=== PATIENT | female | born 1940 | race Caucasian/White ===

== ENCOUNTER 2016-06-15 14:52 | Emergency (ER) | payer MEDICARE, OTHER ==
[2016-06-15 15:55] VITALS: TEMP 97.9
--- NOTE | 2016-06-15 16:33 | EDPHY ---
H & P Time Seen by Provider: 06/15/16 16:33 HPI/ROS: CHIEF COMPLAINT: Left leg swelling HISTORY OF PRESENT ILLNESS: 75-year-old woman fell day on her left knee and then today noticed it was much more swollen and painful on the calf and down to the ankle. Symptoms worse with movement palpation but not associated with chest pain or shortness of breath or fever. Symptoms really started over the last 24 hours. No radiation. REVIEW OF SYSTEMS: Eye: no change in vision ENT: no sore throat Cardiac: no chest pain or syncope Pulmonary: no cough or SOB Abdomen: no vomiting, diarrhea, abdominal pain Musculoskeletal: As in HPI Skin: no rash Neuro: no headache Constitutional: no fever : no urinary symptoms A comprehensive 10 point review of systems is otherwise negative aside from elements mentioned in the history of present illness. PAST MEDICAL HISTORY: Negative Social history: Former smoker. General Appearance: Alert and conversant, cooperative. Eyes: No scleral icterus. ENT, Mouth: Normal mucous membranes. Respiratory: Normal respiratory effort, breath sounds equal, lungs are clear to auscultation. Cardiovascular: Regular rate and rhythm. Gastrointestinal: Abdomen is soft and non tender. Neurological: Alert and oriented x3. Normally conversant. Face symmetric, normal movement and sensation in all extremities. Skin: Abrasion to left kneecap but no redness or lymphangitis, no crepitus, no fluctuance. Musculoskeletal: Left calf is swollen and mildly tender but compartments are soft. Normal motor and sensory in the foot. Normal dorsalis pedis pulse in the left foot. Normal range of motion of the left knee but some pain with range of motion and tender to palpation over the patella. Psychiatric: Not agitated. Emergency Department course/MDM: I think arterial occlusion , or cellulitis are unlikely. I do not think the patient likely has compartment syndrome. Plan for x-ray of the left knee and ultrasound of her left lower extremity. Ultrasound shows Lua cyst but no DVT per [place] at 5:31 p.m.. Results discussed with the patient including showing her the x-ray of her patella. Knee immobilizer placed. Orthopedic follow-up mandatory this week. Smoking Status: Never smoked Constitutional: Initial Vital Signs Temperature (C) 36.6 C 06/15/16 15:53 Heart Rate 74 06/15/16 15:53 Respiratory Rate 14 06/15/16 15:53 Blood Pressure 208/104 H 06/15/16 15:53 O2 Sat (%) 96 06/15/16 15:53 O2 Delivery Mode Room Air Allergies/Adverse Reactions: No Known Allergies Allergy (Unverified 06/15/16 15:53) Home Medications: Medication Instructions Recorded NK [No Known Home Meds] 06/15/16 Medical Decision Making - Diagnostics Imaging: X-ray of the left knee viewed independently by myself shows longitudinal nondisplaced patellar fracture. Differential Diagnosis: Differential considered including but not limited to patella fracture, tibial plateau fracture, compartment syndrome, DVT, Lua cyst, arterial occlusion, cellulitis. Departure - Departure Disposition: Home, Routine, Self-Care Clinical Impression: Left patella fracture Condition: Good Instructions: Patellar Fracture (ED) Additional Instructions: Ultrasound shows no evidence of DVT or blood clot. Referrals: Amanda Sargent MD [Primary Care Provider] - As per Instructions Arturo Bland MD [Medical Doctor] - As per Instructions (followup this week with ortho wear knee brace at all times when not in shower)
--- NOTE | 2016-06-15 17:02 | DX ---
Left knee 5 views History: Pain and swelling after fall 2 days ago. Comparison: None available. Findings: There is a mildly comminuted nondisplaced patellar fracture. Alignment is normal. Bone mine ralization is normal. Mild medial joint space narrowing is present with small osteophytes. Chondrocal cinosis is noted. Atherosclerosis is present. Extensive anterior soft tissue swelling is noted. Impression: Comminuted nondisplaced patellar fracture.
--- NOTE | 2016-06-15 17:32 | US ---
Left Lower Extremity Ultrasound and Venous Duplex Doppler Study History: Swelling after fall. Comparison: None available. Technique: High frequency transducer was used for imaging and Doppler study of the veins of the lowe r extremity. Pulsed Doppler and color Doppler were utilized, along with various maneuvers to assess flow in the veins. Findings: The deep veins of the lower extremity are normally compressible between the groin and the upper calf and have normal Doppler waveforms within them. No venous thrombosis is identified. There is a 4.2 x 0.2 x 0.7 cm fluid collection in the popliteal fossa. Impression: 1. No evidence of deep vein thrombosis. 2. Small Lua's cyst. Findings discussed with Jeannie Ward today at 1730 hours.
[2016-06-15 18:07] VITALS: BP 171/108; PULSE 84; RESP 16; O2SAT 93
== END 2016-06-15 18:07 | disposition home or self-care (01) ==
LOC: EDBD 14:52
DX: S82.045A Nondisplaced comminuted fracture of left patella, initial encounter for closed fracture (principal); Z87.891 Personal history of nicotine dependence; W18.39XA Other fall on same level, initial encounter
CPT/HCPCS: 73564; 93971; L1830

== ENCOUNTER 2016-11-14 21:06 | Emergency (ER) | payer OTHER ==
[2016-11-14 21:14] VITALS: TEMP 97.3
[2016-11-14] MEDS ORDERED: ONDANSETRON 4 MG/2 ML VIAL IVP ONE (21:43)
[2016-11-14] MEDS ORDERED: DIAZEPAM 10 MG/2 ML SYR IVP ONE (21:43)
[2016-11-14] MEDS ORDERED: LIDOCAINE 5% 1 EA PATCH TD ONE (21:49)
[2016-11-14] MEDS ORDERED: NS 1,000 ML IV ONE (22:21)
[2016-11-14] MEDS ORDERED: KETOROLAC 30 MG/1 ML SDV IVP ONE (22:21)
--- NOTE | 2016-11-14 22:24 | EDPHY ---
H & P Stated Complaint: NAUSEA,DIZZY AFTER TAKING PERCOCET TODAY FOR SEVERE LOW BACK PAIN TODAY Time Seen by Provider: 11/14/16 22:02 HPI/ROS: HPI The patient presents with lower back pain which began yesterday, spontaneously, it is a severe dull pain located in her lower back more on the left than the right. It has been constant and is worse with changes in position. She has taken Percocet for this for the pain which did not help, however afterwards she felt nauseated and dizzy. She has not been able to eat or drink much because of the nausea that she has. She does not have any numbness or tingling of her legs, she does not have any weakness of the legs, she does not have any bowel or bladder changes, she does not have any fever. One year ago she had a similar pain after an injury and had low back pain for approximately 7 months. She was treated at [facility] and took meloxicam, Aleve, oxycodone, a course of prednisone. She did physical therapy and swimming which improved her symptoms. She had an MRI performed which showed L4-L5 spondylolisthesis per her report. She was scheduled for an epidural steroid injection, however her pain improved before this time.. REVIEW OF SYSTEMS Constitutional: No fever, no chills. Eyes: No discharge. ENT: No sore throat. Cardiovascular: No chest pain, no palpitations. Respiratory: No cough, no shortness of breath. Gastrointestinal: No abdominal pain, no vomiting. Genitourinary: No hematuria. Musculoskeletal: Positive for Skin: No rashes. Neurological: No headache. PMHx: Hypertension Soc Hx: Lives alone in a 3rd floor walk-up apartment PHYSICAL General Appearance: Alert, no distress Eyes: Pupils equal and round no pallor or injection ENT, Mouth: Mucous membranes moist Respiratory: There are no retractions, lungs are clear to auscultation Cardiovascular: Regular rate and rhythm Gastrointestinal: Abdomen is soft and non-tender, no masses, bowel sounds normal Neurological: A&O, 5/5 strength in lower extremities which is symmetric, sensation intact to light touch, negative straight leg raise bilaterally Skin: Warm and dry, no rashes Musculoskeletal: Back is tender overlying paraspinals of L4-L5, there is no midline tenderness Extremities: symmetrical, full range of motion Psychiatric: Patient is oriented X 3, there is no agitation Source: Patient Exam Limitations: No limitations - Personal History Current Tetanus/Diphtheria Vaccine: Yes - Medical/Surgical History Hx Asthma: No Hx Chronic Respiratory Disease: No Hx Diabetes: No Hx Cardiac Disease: No Hx Renal Disease: No Hx Cirrhosis: No Hx Alcoholism: No Hx HIV/AIDS: No Hx Splenectomy or Spleen Trauma: No Other PMH: VARICOSE VEIN SURG, LOW BACK PROBLEMS, HTN, HEART MURMUR - Social History Smoking Status: Former smoker Constitutional: Initial Vital Signs Temperature (C) 36.3 C 11/14/16 21:11 Heart Rate 70 11/14/16 21:11 Respiratory Rate 22 H 11/14/16 21:11 Blood Pressure 196/117 H 11/14/16 21:11 O2 Sat (%) 98 11/14/16 21:11 O2 Delivery Mode Room Air Allergies/Adverse Reactions: No Known Allergies Allergy (Unverified 11/14/16 21:14) Home Medications: Medication Instructions Recorded Lisinopril 11/14/16 Diazepam [Valium 2 MG (*)] 2 mg PO Q6H PRN #10 tab 11/15/16 Hydrocodone/APAP 5/325 [Camilla 1 - 2 tab PO Q6H PRN #15 tab 11/15/16 5/325 (*)] Medical Decision Making Differential Diagnosis: This is a 75-year-old female with known lower back pain, MRI from about 6 months ago demonstrating L4-L5 spondylolisthesis with possible nerve root compression. She presents today with worsening lower back pain without any red flag features. The pain feels similar to her previous episode. She has taken Percocet at home, however this has caused nausea and dizziness. Differential diagnoses considered include musculoskeletal back pain, cauda equina, aortic dissection. Plan for symptomatic treatment in the emergency room. We will administer IV fluids for her volume depletion, Zofran for nausea, lidocaine patch and Valium as well as Toradol. I do not see the need to image her today and she has MRI from 6 months ago with similar presentation. The patient improved with the above treatments and did require morphine 2 mg IV for improvement in her pain. She will be discharged from the emergency room and I will prescribe her pain medication to go home with. I have referred her to Neurosurgery as she is interested in possible epidural steroid injection. - Data Points Medications Given: Discontinued Medications Hydrocodone Bitart/Acetaminophen (Camilla 5/325mg Prepack#6) 1 btl TAKEHOME EDNOW ONE Stop: 11/15/16 00:10 Last Admin: 11/15/16 00:36 Dose: 1 btl Diazepam (Valium Injection) 2.5 mg IVP EDNOW ONE Stop: 11/14/16 21:44 Last Admin: 11/14/16 22:00 Dose: 2.5 mg Sodium Chloride (Ns) 1,000 mls @ 0 mls/hr IV ONCE ONE; Wide Open PRN Reason: Protocol Stop: 11/14/16 22:22 Last Admin: 11/14/16 22:39 Dose: 1,000 mls Ketorolac Tromethamine (Toradol) 15 mg IVP EDNOW ONE Stop: 11/14/16 22:22 Last Admin: 11/14/16 22:39 Dose: 15 mg Lidocaine (Lidoderm 5%) 1 ea TD EDNOW ONE Stop: 11/15/16 21:46 Last Admin: 11/14/16 22:00 Dose: 1 ea Miscellaneous Information (Patch Removal) 1 ea TD DAILY21 NESHA Stop: 05/14/17 20:59 Last Admin: 11/14/16 23:47 Dose: 1 ea Morphine Sulfate (Morphine) 2 mg IVP EDNOW ONE Stop: 11/14/16 23:11 Last Admin: 11/14/16 23:35 Dose: 2 mg Ondansetron HCl (Zofran) 4 mg IVP EDNOW ONE Stop: 11/14/16 21:44 Last Admin: 11/14/16 22:00 Dose: 4 mg Departure - Departure Disposition: Home, Routine, Self-Care Clinical Impression: Lower back pain Qualifiers: Chronicity: acute Back pain laterality: left Sciatica presence: without sciatica Qualified Code(s): M54.5 - Low back pain Condition: Good Instructions: Hydrocodone/Acetaminophen (By mouth), Low Back Strain (ED), Lower Back Exercises (ED) Referrals: Aga Shay MD [Primary Care Provider] - As per Instructions Ryan Roy MD [Medical Doctor] - As per Instructions Prescriptions: Diazepam [Valium 2 MG (*)] 2 mg PO Q6H PRN #10 tab PRN Reason: muscle spasm Hydrocodone/APAP 5/325 [Camilla 5/325 (*)] 1 - 2 tab PO Q6H PRN #15 tab PRN Reason: Pain, Breakthrough
[2016-11-15] MEDS ORDERED: HYDROCOD/APAP 5/325 PREPACK#6 BTL TAKEHOME ONE (00:09)
[2016-11-15 00:39] VITALS: BP 162/97; PULSE 70; RESP 16; O2SAT 96
[2016-11-15] MEDS ORDERED: PATCH REMOVAL 1 EA PATCH TD SCH (21:00)
[2016-11-15] MEDS ORDERED: LIDOCAINE 5% 1 EA PATCH TD ONE (21:45)
== END 2016-11-15 00:37 | disposition home or self-care (01) ==
DX: M54.5 Low back pain (principal); I10 Essential (primary) hypertension; Z87.891 Personal history of nicotine dependence
CPT/HCPCS: J1885; J2405; 96374

== ENCOUNTER → 2017-07-15 | Outpatient (CLI) | payer OTHER | LOC: FIMAGING 11:32 | PROVIDERS: ATTEND Internal Medicine | DX: Z12.31 Encounter for screening mammogram for malignant neoplasm of breast (principal); Z80.3 Family history of malignant neoplasm of breast ==

== ENCOUNTER → 2018-10-26 | Outpatient (CLI) | payer OTHER | LOC: BMCIMAGING 14:13 ==